=== PATIENT | female | born 1935 | race Caucasian/White ===

== ENCOUNTER → 2018-12-12 11:03 | Outpatient (POV) | payer MEDICARE, BC, SELFPAY | PROVIDERS: Visit Provider Dermatology | DX: Z00.00 Encounter for general adult medical examination without abnormal findings (principal) ==

== ENCOUNTER → 2021-03-13 15:37 | Outpatient (CLI) | payer MEDICARE, BC, SELFPAY ==
--- NOTE | 2021-03-13 | CA_ITS ---
APPROVED REPORT Right Lower Extremity Venous Study for DVT. Ager Operator: LOKI Cervantes Lower Extremity Pain: Right Varicose Veins Lower Extremity Swelling: Right Patient reports pain and a knot in her right calf that has been there since 03/09. Vein Imaging CFV (R): compressive, spontaneous, phasic, augmentation SFJ (R): compressive, spontaneous, phasic, augmentation FEM (R): compressive, spontaneous, phasic, augmentation POP (R): compressive, spontaneous, phasic, augmentation PTV (R): compressive, spontaneous, phasic, augmentation GSV (R): compressive, spontaneous, phasic, augmentation Peroneals (R):compressive, spontaneous, phasic, augmentation GAS (R): compressive, spontaneous, phasic, augmentation Findings Study demonstrates no evidece of DVT in the right lower extremity. Study demonstrates thrombophlebitis in the right proximal-mid medial calf. Conclusion Study demonstrates no evidece of DVT in the right lower extremity. Study demonstrates thrombophlebitis in the right proximal-mid medial calf. Critical Notification Physician Notified Date: 03/13/2021 Time: 16:24 Physician Name: Dr. Joy Electronically signed by : Pablo Segal MD 03/16/2021 16:21:51
== END ==
PROVIDERS: PCP Internal Medicine Adolescent Medicine; Visit Provider Internal Medicine Adolescent Medicine
DX: M79.604 Pain in right leg (principal)
CPT/HCPCS: 93971

== ENCOUNTER → 2021-10-06 09:04 | Outpatient (POV) | payer MEDICARE, BC, SELFPAY | PROVIDERS: Visit Provider Dermatology | DX: Z00.00 Encounter for general adult medical examination without abnormal findings (principal) ==

== ENCOUNTER → 2021-10-08 08:27 | Outpatient (CLI) | payer MEDICARE, BC, SELFPAY ==
--- NOTE | 2021-10-08 08:31 | US_ITS ---
FINAL REPORT CLINICAL HISTORY: MALAISE,HIGH BILIRUBIN-- sob FINDINGS: ABDOMINAL ULTRASOUND COMPLETE: TECHNIQUE: Ultrasound images of the abdomen were obtained. The pancreas is partially obscured. The liver is unremarkable. Multiple gallstones are seen with significant wall thickening measuring up to 8 mm, acute cholecystitis is not excluded. The common duct is borderline measuring 8 mm. The right kidney measures measures 9.1 cm. There is a small right renal cyst measuring 1.3 cm. The left kidney measures 10.2 cm. No flow is noted to both kidneys of uncertain significance. There is a small to moderate amount of ascites. Right pleural effusion is seen. The spleen is unremarkable. The aorta is normal in caliber. The vena cava is unremarkable. IMPRESSION: Gallstones with significant wall thickening, acute cholecystitis is not excluded. No flow seen to both kidneys of uncertain significance. If indicated, CTA may be helpful. Small to moderate ascites. Moderate right effusion. Reviewed, Interpreted and Dictated by Rony Bellamy III, MD Transcribed by Jessica Schreiber Authenticated by Rony Bellamy III, MD on 10/08/2021 10:26:21 AM [facility]
--- NOTE | 2021-10-08 09:29 | XR_ITS ---
FINAL REPORT CLINICAL HISTORY: SOB, PLURAL EFFUSION RIGHT COMPARISON: May 06, 2017 FINDINGS: Two views of the chest were obtained. Cardiomegaly is noted. There is a large hiatal hernia. There is mild bibasilar atelectasis or pneumonia. There is a small right pleural effusion. There is no pneumothorax. The bony thorax is intact. IMPRESSION: Mild bibasilar atelectasis or pneumonia, worse. Small right pleural effusion. Reviewed, Interpreted and Dictated by Rony Bellamy III, MD Transcribed by Jesus Boyd Authenticated by Rony Bellamy III, MD on 10/08/2021 10:01:00 AM [facility]
[2021-10-08 12:09] LABS: Basophils # 0.1 K/mm3 (0-0.2); Basophils % 1.2 % (0.1-2.0); Eosinophils % 0.6 % (0.1-12.0); Hematocrit 53.1 % (37.0-47.0); Hemoglobin 16.9 g/dL (12.2-16.2); Lymphocytes # 1.5 K/mm3 (0.7-4.5); Lymphocytes % 21.9 % (10-50); Mean Corpuscular HGB Conc 31.7 g/dL (31.8-35.4); Mean Corpuscular Volume 91.4 fl (81-99); Mean Platelet Volume 10.9 fl (7.4-10.4); Monocytes # 0.4 K/mm3 (0.1-1.0); Neutrophils # 4.8 K/mm3 (1.8-7.8); Neutrophils % 70.3 % (37.0-80.0); Platelet Count 235 K/mm3 (142-424); Red Blood Count 5.81 M/mm3 (4.20-5.40); Red Cell Distribution Width 14.3 % (11.5-17.5); White Blood Count 6.8 K/mm3 (4.8-10.8)
[2021-10-08 14:27] LABS: Alanine Aminotransferase 40 U/L (12-78); Albumin Level 4.5 g/dl (3.5-5.0); Albumin/Globulin Ratio 1.9 (1.1-1.8); Alkaline Phosphatase 32 U/L (38-126); Anion Gap 14.7 mEq/L (5-15); Aspartate Amino Transferase 45 U/L (14-36); Bilirubin,Total 8.5 mg/dl (0.2-1.3); Blood Urea Nitrogen 20 mg/dl (7-17); Calcium 9.9 mg/dl (8.4-10.2); Carbon Dioxide 24 mmol/L (22.0-30.0); Chloride 109 mmol/L (98-107); Estimated Glomerular Filt Rate 39 ml/min (>60); GFR (African American) 47 ML/MIN (>60); Globulin 2.4 g/dL (1.3-3.2); Glucose 132 mg/dl (74-100); Potassium 4.7 mmoL/L (3.5-5.1); Sodium 143 mmol/L (136-145); Total Protein,Serum 6.9 g/dl (6.3-8.2)
== END ==
LOC: RAD 08:27 → LAB 11:19
PROVIDERS: PCP Internal Medicine Adolescent Medicine; Visit Provider Internal Medicine Adolescent Medicine
DX: R53.81 Other malaise (principal); R17 Unspecified jaundice; R06.02 Shortness of breath; K81.0 Acute cholecystitis; J90 Pleural effusion, not elsewhere classified
CPT/HCPCS: 36415; 71046; 76700; 80053; 85025

== ENCOUNTER → 2021-10-14 09:08 | Outpatient (CLI) | payer MEDICARE, BC, SELFPAY ==
[2021-10-14 09:28] LABS: Basophils # 0.1 K/mm3 (0-0.2); Basophils % 1.6 % (0.1-2.0); Eosinophils # 0.1 K/mm3 (0.0-0.4); Eosinophils % 1.1 % (0.1-12.0); Hematocrit 55.6 % (37.0-47.0); Hemoglobin 17.9 g/dL (12.2-16.2); Lymphocytes # 1.7 K/mm3 (0.7-4.5); Lymphocytes % 23.8 % (10-50); Mean Corpuscular HGB Conc 32.2 g/dL (31.8-35.4); Mean Corpuscular Hemoglobin 29.2 pg (27.0-31.2); Mean Corpuscular Volume 90.9 fl (81-99); Mean Platelet Volume 10.7 fl (7.4-10.4); Monocytes # 0.4 K/mm3 (0.1-1.0); Monocytes % 5.9 % (1.7-9.3); Neutrophils # 4.9 K/mm3 (1.8-7.8); Neutrophils % 67.6 % (37.0-80.0); Platelet Count 224 K/mm3 (142-424); Red Blood Count 6.11 M/mm3 (4.20-5.40); Red Cell Distribution Width 14.1 % (11.5-17.5); White Blood Count 7.3 K/mm3 (4.8-10.8)
[2021-10-14 09:33] LABS: INR 1.21 (0.9-1.1); Prothrombin Time 13.5 seconds (10.1-12.5)
[2021-10-14 09:36] LABS: Alanine Aminotransferase 39 U/L (12-78); Albumin Level 4.9 g/dl (3.5-5.0); Albumin/Globulin Ratio 1.8 (1.1-1.8); Alkaline Phosphatase 32 U/L (38-126); Anion Gap 13.7 mEq/L (5-15); Aspartate Amino Transferase 51 U/L (14-36); Blood Urea Nitrogen 18 mg/dl (7-17); Calcium 9.6 mg/dl (8.4-10.2); Carbon Dioxide 26 mmol/L (22.0-30.0); Chloride 106 mmol/L (98-107); Estimated Glomerular Filt Rate 39 ml/min (>60); GFR (African American) 47 ML/MIN (>60); Globulin 2.8 g/dL (1.3-3.2); Glucose 165 mg/dl (74-100); Potassium 3.7 mmoL/L (3.5-5.1); Sodium 142 mmol/L (136-145); Total Protein,Serum 7.7 g/dl (6.3-8.2)
== END ==
PROVIDERS: Visit Provider Surgery
DX: K82.9 Disease of gallbladder, unspecified (principal); Z01.812 Encounter for preprocedural laboratory examination; R18.8 Other ascites
CPT/HCPCS: 36415; 80053; 85025; 85610

== ENCOUNTER → 2021-10-21 08:04 | Outpatient (CLI) | payer MEDICARE, BC, SELFPAY ==
--- NOTE | 2021-10-21 08:56 | MR_ITS ---
FINAL REPORT CLINICAL HISTORY: ELEVATED BILIRUBIN, ? DILATED BILE DUCT hx of advanced hepatic fibrosis COMPARISON: Ultrasound of the abdomen dated 10/08/2021 FINDINGS: Multiplanar MR imaging of the abdomen was performed without and with contrast. An MRCP was also performed. Three-D reformatted images were obtained. There is motion on many of the images which significantly decreases the sensitivity of the exam. Many sequences are nondiagnostic secondary to motion. There are small pleural effusions and mild bibasilar atelectasis. Images of the liver reveal no evidence of mass. There is moderate ascites. There is no evidence of biliary ductal dilatation. There are large gallstones in the gallbladder with gallbladder wall thickening. The common bile duct measures 6 mm which is within normal limits for the patient's age. There is a large hiatal hernia. There is a small right renal cyst. No abnormal fluid collection is seen. No abnormal contrast enhancement is seen on the postcontrast images. IMPRESSION: 1. Significantly technically limited exam. 2. Gallstone within the gallbladder with mild gallbladder wall thickening. Cholecystitis is not excluded. 3. Biliary system is suboptimally visualized but no definite stone or stricture. 4. Moderate ascites. 5. Large hiatal hernia. Reviewed, Interpreted and Dictated by Rony Bellamy III, MD Transcribed by Amada Camejo Authenticated by Rony Bellamy III, MD on 10/21/2021 01:15:50 PM [facility]
[2021-10-21 09:40] LABS: Ammonia < 9 umol/L (9-30)
[2021-10-22 08:17] LABS: AFP, Tumor Marker 2.7 ng/mL (0.0-8.7); CA 19-9 27 U/mL (0-35)
[2021-10-22 12:13] LABS: Ceruloplasmin 14.1 mg/dL (19.0-39.0); Hepatitis B Surface Antigen Negative (Negative); Hepatitis C Antibody <0.1 s/co ratio (0.0-0.9)
[2021-10-22 16:53] LABS: Actin (Smooth Muscle) Antibody 14 Units (0-19); Mitochondrial (M2) Antibody <20.0 Units (0.0-20.0)
[2021-10-24 00:07] LABS: ALT (SGPT) P5P 32 IU/L (0-40); AST (SGOT) P5P 38 IU/L (0-40); Alpha 2-Macroglobulins, Qn 189 mg/dL (110-276); Apolipoprotein A-1 139 mg/dL (114-214); Bilirubin, Total 6.8 mg/dL (0.0-1.2); Cholesterol, Total 123 mg/dL (100-199); Fibrosis Score 0.95 (0.00-0.21); GGT 75 IU/L (0-60); Glucose 128 mg/dL (65-99); Haptoglobin 21 mg/dL (41-333); NASH Score 0.75 (0.25); Steatosis Score 0.73 (0.00-0.30); Triglycerides 108 mg/dL (0-149)
[2021-10-26 17:19] LABS: Alpha-1-Antitrypsin 123 mg/dL (101-187)
== END ==
PROVIDERS: PCP Internal Medicine Adolescent Medicine; Visit Provider Internal Medicine Gastroenterology
DX: K83.8 Other specified diseases of biliary tract; K74.02 Hepatic fibrosis, advanced fibrosis
CPT/HCPCS: 36415; 74183; 82103; 82104; 82105; 82140; 82390; 82525; 86255; 86256; 86316; 87340; 87380; A9576

== ENCOUNTER → 2021-10-31 19:00 | Outpatient (CLI) | payer MEDICARE, BC, SELFPAY ==
[2021-11-04 23:18] LABS: Copper, Urine 40 ug/L (Not Estab.); Copper,Urine 24 Hr 28 ug/24 hr (3-35); Copper/Crt Ratio 33 ug/g creat (0-49); Creatinine(Crt),U 1.23 g/L (0.30-3.00)
== END ==
PROVIDERS: Visit Provider Internal Medicine Gastroenterology
DX: K74.02 Hepatic fibrosis, advanced fibrosis (principal); E83.01 Wilson's disease
CPT/HCPCS: 82525; 82570

== ENCOUNTER 2021-11-19 16:24 | Inpatient (IN) | payer MEDICARE, BC, SELFPAY ==
[2021-11-19 16:32] VITALS: O2SAT 88
--- NOTE | 2021-11-19 16:32 | XR_ITS ---
PROCEDURE INFORMATION: Exam: XR Chest Exam date and time: 11/19/2021 4:44 PM Age: 86 years old Clinical indication: Cough; Patient HX: Low o2 TECHNIQUE: Imaging protocol: XR of the chest. Views: 1 view. COMPARISON: CR XR CHEST 2V 10/08/2021 9:31 AM FINDINGS: Lungs: Streaky consolidation at both lung bases. This finding is more pronounced in the interval. The remaining pulmonary parenchyma is clear. No other pulmonary infiltrate or consolidation. Probable pulmonary hyperexpansion again noted. Pleural spaces: Unremarkable. No pleural effusion. No pneumothorax. Heart/Mediastinum: Mild enlargement of the heart again noted. Bones/joints: Unremarkable. IMPRESSION: 1. Airspace consolidation at both lung bases may represent atelectasis or pneumonia. 2. Chronic obstructive pulmonary disease.
--- NOTE | 2021-11-19 16:36 | CA_ITS ---
APPROVED REPORT EXAM: Comprehensive 2D, Doppler, and color-flow Echocardiogram Quilting Supervisor: POLINA Frederick, RVS Ht: 5 ft 5 in Wt: 189lbs BSA: 1.93 BP: 154/96 mmHg Indications: SOA,Pleural effusion, Liver disease with jaundice, dehydration, Murmur Echo Enhancing Agent Comments: patient scanned upright supine due to low oximetry 2D Dimensions IVSd 1.59 cm F: 0.6-1.0 LA Volume 42.80 mL PWd 0.80 cm F: 0.6 - 1.0 LA Volume Index 22.17 mL/m2 (M/F) 16-34 LVDd 3.64 cm F: 3.9 - 5.3 Aortic Root 3.15 cm F: 2.7 - 3.3 Left Atrium 2.98 cm F: 2.7 - 3.8 LVOT 1.70 cm (M/F) 1.5-2.5 M-Mode Dimensions RVDd 3.30 cm (0.9-2.6) LA Diam 4.13 cm (1.9-4.0) LVDd 3.81 cm (3.5-5.7) Ao Diam 3.49 cm (2.0-3.7) LVDs 2.36 cm (3.5-5.7) IVSd 1.32 cm (0.6-1.1) PWd 0.90 cm (0.6-1.1) EF (Teich) 69.00% FS 38.10% EDV (Teich) 62.30 mL TAPSE 1.29 (<1.7) ESV (Teich) 19.30 mL LV Diastology E Decel Time 290.00 (160-240 msec) E/A Ratio 0.47 Aortic Valve LVOT Max 70.00 (70-110 cm/s) LVOT VTI 13.09 cm AoV Peak Juan. 117.00 (50-130 cm/s) AO Peak GR. 5.50 mmHg AO Mean GR. 2.60 (<5 mmHg) AO VTI 16.38 (18-25 cm) ESTHER (VTI) 1.81 (2.5-4.5 cm2) Mitral Valve MV A Velocity 86.00 (40-130 cm/s) E/A Ratio 0.47 MV Decel. Time 290.00 (160-240 ms) MV Mean Gr. 0.80 (<2mmHg) MV PHT 100.00 ms Pulmonary Valve PV Peak Velocity 42.00 (50-150 cm/s) OR End VMAX 202.00 cm/s Tricuspid Valve TR P. Velocity 416.00 cm/s RAP Estimate 10.00 mmHg RVSP 79.40 mmHg Left Ventricle Technically difficult study because of the patient factors and poor acoustic windows. Left atrium is mildly enlarged, left ventricle is normal size, mild concentric ventricular hypertrophy, estimated ejection fraction 55% with no regional wall motion abnormality, there is flattening of the interventricular septum during systole and diastole consistent with pressure and volume overload on right ventricle. Doppler evidence of impaired LV relaxation seen. Right Ventricle Right atrium and right ventricle moderately enlarged, contractility right ventricle is normal. Aortic Valve Aortic valve is minimally thickened and fibrosed, there is no aortic stenosis or aortic insufficiency. Mitral Valve Mitral leaflets are minimally thickened, there is no mitral stenosis, there is mild mitral regurgitation. Tricuspid Valve Tricuspid valve is grossly normal, there is mild tricuspid regurgitation, calculated right ventricular systolic pressure 79 mmHg. Pulmonic Valve Pulmonic valve is poorly visualized. Great Vessels Aortic root is normal size. Inferior vena cava is poorly visualized. Pericardium Trivial pericardial effusion noted. Left-sided pleural effusion seen. Conclusion 1. Normal left ventricular size, mild concentric left ventricular hypertrophy, estimated ejection fraction 55%, with no regional wall motion abnormality, there is flattening of the intraventricular septum during systole and diastole consistent with pressure and volume overload on right ventricle. 2. Moderately enlarged right atrium and right ventricle, contractility right ventricle is normal. 3. Mild mitral and tricuspid regurgitation, calculated right ventricular systolic pressure 79 mmHg. 4. Trivial pericardial effusion noted, there is left-sided pleural effusion seen. Electronically signed by : Rk Sapp MD 11/20/2021 13:00:02
[2021-11-19 16:56] VITALS: BP 151/90; PULSE 82; RESP 18; TEMP 36.4; O2SAT 86; BMI 30.5
[2021-11-19 17:19] LABS: Basophils # 0.2 K/mm3 (0-0.2); Basophils % 1.5 % (0.1-2.0); Eosinophils # 0.1 K/mm3 (0.0-0.4); Eosinophils % 0.7 % (0.1-12.0); Hematocrit 55.5 % (37.0-47.0); Lymphocytes # 1.5 K/mm3 (0.7-4.5); Lymphocytes % 15.3 % (10-50); Mean Corpuscular HGB Conc 32.8 g/dL (31.8-35.4); Mean Corpuscular Hemoglobin 28.8 pg (27.0-31.2); Mean Corpuscular Volume 87.8 fl (81-99); Mean Platelet Volume 12.4 fl (7.4-10.4); Monocytes # 0.7 K/mm3 (0.1-1.0); Monocytes % 6.4 % (1.7-9.3); Neutrophils # 7.7 K/mm3 (1.8-7.8); Neutrophils % 76.1 % (37.0-80.0); Platelet Count 205 K/mm3 (142-424); Red Blood Count 6.32 M/mm3 (4.20-5.40); Red Cell Distribution Width 14.8 % (11.5-17.5); White Blood Count 10.1 K/mm3 (4.8-10.8)
[2021-11-19 17:26] LABS: Alanine Aminotransferase 67 U/L (12-78); Albumin Level 4.6 g/dl (3.5-5.0); Albumin/Globulin Ratio 1.7 (1.1-1.8); Alkaline Phosphatase 46 U/L (38-126); Amylase 77 U/L (30-110); Anion Gap 14.9 mEq/L (5-15); Aspartate Amino Transferase 63 U/L (14-36); Bilirubin,Total 10.1 mg/dl (0.2-1.3); Blood Urea Nitrogen 39 mg/dl (7-17); Calcium 10.5 mg/dl (8.4-10.2); Carbon Dioxide 21 mmol/L (22.0-30.0); Chloride 106 mmol/L (98-107); Creatinine Clearance Estimated 28 mL/min (50-200); Estimated Glomerular Filt Rate 24 ml/min (>60); GFR (African American) 29 ML/MIN (>60); Globulin 2.7 g/dL (1.3-3.2); Glucose 128 mg/dl (74-100); Magnesium 1.7 mg/dl (1.6-2.3); Potassium 3.9 mmoL/L (3.5-5.1); Sodium 138 mmol/L (136-145); Total Protein,Serum 7.3 g/dl (6.3-8.2)
[2021-11-19 17:33] LABS: C-Reactive Protein < 0.3 mg/L (0-4)
[2021-11-19 17:46] LABS: INR 1.44 (0.9-1.1); Prothrombin Time 15.8 seconds (10.1-12.5)
--- NOTE | 2021-11-19 17:46 | ECG_ITS ---
APPROVED REPORT Exam: Resting ECG HR:77 bpm ECG Measurements Heart Rate 77 AXES RI 173 P 62 QRSd 92 QRS 131 QT 404 T -44 QTc 436 Conclusion SINUS RHYTHM WITH OCCASIONAL SUPRAVENTRICULAR PREMATURE COMPLEXES INCOMPLETE RIGHT BUNDLE BRANCH BLOCK [90+ ms QRS DURATION, TERMINAL R IN V1/V2, 40+ ms S IN I/aVL/V4/V5/V6] POSSIBLE RIGHT VENTRICULAR HYPERTROPHY [SOME/ALL OF: PROMINENT R IN V1, LATE TRANSITION, RAD, BOYD, SSS] POSSIBLE ANTERIOR MYOCARDIAL INFARCTION , OF INDETERMINATE AGE [30 ms Q WAVE IN V3/V4, OR R < 0.2 mV IN V4] ABNORMAL ECG UNCONFIRMED REPORT Electronically signed by : Jamison Romero MD 11/20/2021 09:56:39
[2021-11-19 17:47] LABS: Erythrocyte Sedimentation Rate 1 mm/hr (0-30)
[2021-11-19 18:03] LABS: Lipase 631 U/L (23-300)
[2021-11-19 18:04] LABS: Hemoglobin 18.2 g/dL (12.2-16.2)
--- NOTE | 2021-11-19 18:05 | CT_ITS ---
PROCEDURE INFORMATION: Exam: CT Abdomen And Pelvis Without Contrast Exam date and time: 11/19/2021 7:16 PM Age: 86 years old Clinical indication: Other: Ascities, dyspea, liver disease; Additional info: Acsites, dyspnea, liver disease TECHNIQUE: Imaging protocol: Computed tomography of the abdomen and pelvis without contrast. Radiation optimization: All CT scans at this facility use at least one of these dose optimization techniques: automated exposure control; mA and/or kV adjustment per patient size (includes targeted exams where dose is matched to clinical indication); or iterative reconstruction. COMPARISON: MR ABDOMEN WO/W CON 10/21/2021 9:47 AM FINDINGS: Lungs: New dense atelectasis or consolidation in the left lower lobe compared with the prior MRI, with air bronchograms. Chronic patchy in the right middle and lower lobes. Pleural spaces: There is a small to moderate layering right pleural effusion, and trace left pleural effusion , fluid density is approximately 11-20 HU. Heart: Cardiomegaly. Pericardial effusion which appears enlarged compared with the prior MRI exam, up to 1.7 cm thickness coronal series 601, image 29. Fluid has HU density measurements of approximately 18-20.Coronary artery calcification is present. Liver: The liver is within normal limits size. No discrete mass seen on this nonenhanced exam. Gallbladder and bile ducts: Cholelithiasis, large gallstones better seen on the prior MRCP. Pericholecystic fluid is probably related to the generalized ascites, less likely cholecystitis. Biliary tree appears within normal limits. Pancreas: The pancreas is normal. Spleen: No splenomegaly. Multiple calcified granulomas. Adrenal glands: The adrenal glands are normal. Kidneys and ureters: Right kidney is unremarkable. Hyperdense, likely hemorrhagic cyst at the left lower pole kidney of 91 HU, measuring 1.6 cm coronal image 45. There is an indeterminate density mass in the inferomedial left kidney of 2.5 cm, HU density 32 coronal series 601, image 40, this does not have the appearance of a simple cyst on the previous MRI exam, compare coronal series 4, image 18 of the previous MRI from 10/21/2021, this could be a solid mass, and appears to show contrast enhancement on the previous MRI exam, compare coronal series 33, image 70 of the previous MRI, worrisome for a solid enhancing mass versus leakage of contrast into a cyst. Another 9 mm indeterminate density nodule at the left upper pole series 3, image 35, too small to accurately characterize. No hydronephrosis, hydroureter, or calcified obstructing stones. Stomach and bowel: There is no evidence of intestinal perforation or obstruction. A large hiatal hernia containing majority of the stomach; the stomach is moderately rotated consistent with the partial volvulus, but there is no evidence of gastric outlet obstruction, or definite change compared with the prior MRI. No acute findings in the stomach, as visualized. Appendix: No findings of appendicitis. Intraperitoneal space: Large amount of abdominal-pelvic free fluid/ascites. No hyperdense fluid to suggest hemoperitoneum or to confirm infection. No loculated collection seen on this nonenhanced exam.There is no free intraperitoneal air. Arteries: There is no aortic aneurysm.The vasculature demonstrates scattered mild atherosclerotic calcification. Veins: No portal venous gas. Lymph nodes: No significantly enlarged lymph nodes by short axis criteria. Urinary bladder: The bladder is normal. Reproductive: No acute findings as visualized. Bones/joints: There are spinal degenerative changes, with multilevel disc narrrowing and spo
--- NOTE | 2021-11-19 18:08 | PC.NURSE ---
18:04 - Critical Lab value of Lipase at 631received from Nehemias De La O in lab, pt. name and date of verified. 18:07 - Dr. Roemro notified of Lipase at 631. v/u no new orders received.
[2021-11-19 18:11] LABS: ABG Base Excess -7.1 mmol/L (-2.4-2.3); ABG HCO3 17.8 mmhg (22.0-26.0); ABG Oxygen Saturation 88 % (90-100); ABG PCO2 29.9 mmhg (35.0-45.0); ABG PH 7.39 mmol/L (7.35-7.45); ABG PO2 52.5 mmhg (80-100); ABG TCO2 18.7 mmhg (23-27)
[2021-11-19 18:13] LABS: Allen's Test Acceptable
[2021-11-19 18:14] LABS: Oxygen 5L %; Source Right Radial
--- NOTE | 2021-11-19 19:09 | PC.NURSE ---
RESP CARE NOTE: Pt placed on 50% venturi mask at 15 lpm to keep SPO2 above 90%. Will continue to monitor.
[2021-11-19 19:11] VITALS: O2SAT 92
--- NOTE | 2021-11-19 19:14 | PC.NURSE ---
PT IS OFF FLOOR AT THID TIME
--- NOTE | 2021-11-19 19:26 | PC.NURSE ---
PT BACK TO FLOOR A THIS TIME
--- NOTE | 2021-11-19 19:35 | PC.NURSE ---
RESP CARE NOTE: Pt SPO2 at 90% on 50% Venti-mask. Will continue to monitor.
[2021-11-19 20:00] VITALS: BP 141/91; PULSE 60; RESP 18; TEMP 36.5; O2SAT 90
[2021-11-19 21:04] LABS: POC Glucose,Bedside 103 (70-110)
[2021-11-19 22:20] LABS: Chloride, Arterial 106 mmol/L (98-107); Potassium, Arterial 4.1 mmoL/L (3.5-5.1); Sodium Arterial 139 mmol/L (137-145)
[2021-11-19 22:21] LABS: Calcium, Arterial 5.2 mg/dL (8.5-10.1)
[2021-11-19 22:23] LABS: Lactate Arterial 2.4 mmol/L (0.4-2.0)
--- NOTE | 2021-11-19 23:16 | HMH.HP ---
*Admission Date: 11/19/21 *Chief complaint: weakness, shortness of breath *History of present illness: 86 yr old female seen today in outpatient clinic, accompanied by her son who assists with history, with complaints of worsening shortness of breath, diarrhea, weakness and edema. She has been undergoing workup recently for liver disease and abnormal blood counts. Has been evaluated by general surgery here at [facility] due to gallstones, referred to Dr Pearl and he has subsequently referred her to another liver specialist in [place], [place] but that appointment isn't until March. Additionally has an appointment pending with hematology at in December. Developed diarrhea 2 weeks ago. Has been slightly better in the past 3-4 days but still has loose stool every time she attempts to eat or drink. Her shortness of breath has gotten substantially worse over the past 2 weeks and yesterday she became unable to care for herself physically. She denies vomiting, cough, fever, dysuria, known exposure to illness. Her only new medication is spironolactone which was added by Dr Pearl about 3 weeks ago. On exam she was jaundiced, with conversational dyspnea and low pulse ox and was admitted for hydration and additional workup as indicated. [facility] History I have reviewed the patient's past medical history: Yes Medical History: Reports:: Diabetes Mellitus Type 2, Gall Bladder Disease, Hiatal Hernia, Hyperlipidemia, Hypertension, Kidney Stones, Renal Disease, Urinary Tract Infection Denies:: Cancer, Diabetes Mellitus Type 1, Internal Pacemaker, Lung Disease, MRSA, Seizures *Have you ever received a pneumonia vaccine?: Yes *Have you received a flu vaccine this season?: No Other Medical History: Reports: Arthritis, Liver Disease, Sinus Problems Laterality Cases: Bilateral: Tonsillectomy Other Surgeries: Yes: Colonoscopy, Sinus Surgery, Skin Cancer Excision, Other (parathyroid surgery, fatty tumor removed from hip). No: Pacemaker Amputation: No Fractures: No - *Social History Last grade of school completed: Some college Smoking Status: Former smoker Alcohol Intake: never Substance Use Type: denies use *Occupational Status:: retired Housing: house Household Members: none *Travel in the last 8 weeks: None Family Hx:: Cancer Review of Systems - Review of Systems Review of systems:: pertinent systems reviewed and negative unless documented below - Constitutional Reports anorexia, Reports fatigue, Reports weakness, Denies fever(s) - ENT Reports dry mouth - *Cardiovascular Reports shortness of breath, Reports leg swelling - *Respiratory Reports shortness of breath, Denies cough - *Gastrointestinal Reports loose stools, Reports nausea, Denies abdominal pain - *Musculoskeletal Reports muscle weakness - Integumentary/Breasts Reports yellowing of the skin - *Neurologic Reports unsteadiness Meds Home Medications Medication Instructions Recorded Confirmed Type amlodipine 5 mg tablet 5 mg PO DAILY 11/15/17 11/19/21 History atorvastatin 10 mg tablet 10 mg PO DAILY 11/15/17 11/19/21 History benazepril 40 mg tablet 40 mg PO DAILY 11/15/17 11/19/21 History furosemide 20 mg tablet 20 mg PO DAILY tab 10/14/21 11/19/21 History Acetaminophen/Diphenhydramine 1 each PO HSP PRN 11/19/21 11/19/21 History [Tylenol Pm Ex-Strength Caplet] Melatonin 1 mg PO HSP PRN 11/19/21 11/19/21 History Metformin HCl [Metformin 1000mg 1,000 mg PO DAILY 11/19/21 11/19/21 History Tablets] Nebivolol HCl 10 mg PO DAILY 11/19/21 11/19/21 History Spironolactone 50 mg PO DAILY 11/19/21 11/19/21 History Allergies Allergy/AdvReac Type Severity Reaction Status Date / Time erythromycin base Allergy Intermediate I-RASH Verified 10/14/21 10:00 Sulfa (Sulfonamide Allergy Intermediate I-RASH Verified 10/14/21 10:00 Antibiotics) aspirin Allergy Mild Verified 10/14/21 10:00 hydrocodone Allergy Mild HEADACHE Verified 10/14/21 10:00 ibuprofen Allergy Mild Verified
[2021-11-19 23:50] VITALS: O2SAT 88
[2021-11-20] VITALS (9 sets, daily range): BP systolic 101–145; BP diastolic 49–94; PULSE 56–83; RESP 17–20; TEMP 36.3–36.8; O2SAT 84–96; BMI 30.1
--- NOTE | 2021-11-20 00:32 | PC.NURSE ---
RESP CARE NOTE: Pt SPO2 at 85% on 50% venturi-mask. RN aware and has attempted contacting physician.
--- NOTE | 2021-11-20 00:55 | PC.NURSE ---
RESP CARE NOTE: Pt placed on 15lpm high flow nasal cannula, per Dr Joy order, after one Duoneb breathing treatment given, per Dr Joy order.
[2021-11-20 06:32] LABS: POC Glucose,Bedside 89 (70-110)
[2021-11-20 07:05] LABS: Basophils # 0.2 K/mm3 (0-0.2); Basophils % 1.9 % (0.1-2.0); Chloride 109 mmol/L (98-107); Eosinophils # 0.1 K/mm3 (0.0-0.4); Eosinophils % 0.8 % (0.1-12.0); Hematocrit 52.2 % (37.0-47.0); Hemoglobin 17.1 g/dL (12.2-16.2); Lymphocytes # 1.8 K/mm3 (0.7-4.5); Lymphocytes % 21.6 % (10-50); Mean Corpuscular HGB Conc 32.8 g/dL (31.8-35.4); Mean Corpuscular Hemoglobin 28.9 pg (27.0-31.2); Mean Corpuscular Volume 88.1 fl (81-99); Mean Platelet Volume 12.5 fl (7.4-10.4); Monocytes # 0.6 K/mm3 (0.1-1.0); Monocytes % 7.3 % (1.7-9.3); Neutrophils # 5.8 K/mm3 (1.8-7.8); Neutrophils % 68.4 % (37.0-80.0); Platelet Count 192 K/mm3 (142-424); Red Blood Count 5.93 M/mm3 (4.20-5.40); Sodium 139 mmol/L (136-145); White Blood Count 8.4 K/mm3 (4.8-10.8)
[2021-11-20 07:06] LABS: Potassium 4.1 mmoL/L (3.5-5.1)
[2021-11-20 07:08] LABS: Alanine Aminotransferase 53 U/L (12-78); Albumin Level 3.7 g/dl (3.5-5.0); Albumin/Globulin Ratio 1.5 (1.1-1.8); Alkaline Phosphatase 35 U/L (38-126); Anion Gap 14.1 mEq/L (5-15); Aspartate Amino Transferase 58 U/L (14-36); Bilirubin,Total 9.1 mg/dl (0.2-1.3); Blood Urea Nitrogen 40 mg/dl (7-17); Carbon Dioxide 20 mmol/L (22.0-30.0); Creatinine Clearance Estimated 25 mL/min (50-200); Estimated Glomerular Filt Rate 21 ml/min (>60); GFR (African American) 26 ML/MIN (>60); Globulin 2.5 g/dL (1.3-3.2); Total Protein,Serum 6.2 g/dl (6.3-8.2)
[2021-11-20 07:09] LABS: Glucose 99 mg/dl (74-100); Magnesium 1.7 mg/dl (1.6-2.3)
--- NOTE | 2021-11-20 07:30 | HMH.ACPN2 ---
Internal Medicine - PN: Subj *Date: 11/20/21 *Time: 14:43 Interval history: Increased oxygen requirement overnight. Transition to high flow nasal cannula. Feeling much better this morning with saturations in the low 90s. Slight improvement in bilirubin on labs. Patient n.p.o. since imaging yesterday and would like to try eating however has not been able to eat very well due to nausea and throwing up which she has been eating for the past few weeks. On imaging as large hiatal hernia. This likely complicate some of her p.o. intake. Will order clear liquid diet for her to try and at least have options for drinking fluids. Exam Vital signs and Labs for Last 24 Hours: Temp Pulse Resp BP Pulse Ox 98.3 F 72 17 129/80 90 L 11/20/21 04:00 11/20/21 06:29 11/20/21 04:00 11/20/21 04:00 11/20/21 06:29 Laboratory Results - last 24 hr 11/19/21 16:58: WBC 10.1, RBC 6.32 H, Hgb 18.2 H, Hct 55.5 H, MCV 87.8, MCH 28.8, MCHC 32.8, RDW 14.8, Plt Count 205, MPV 12.4 H, Neut % (Auto) 76.1, Lymph % (Auto) 15.3, [place] % (Auto) 6.4, Eos % (Auto) 0.7, Baso % (Auto) 1.5, Neut # (Auto) 7.7, Lymph # (Auto) 1.5, [place] # (Auto) 0.7, Eos # (Auto) 0.1, Baso # (Auto) 0.2 11/19/21 16:58: Sodium 138, Potassium 3.9, Chloride 106, Carbon Dioxide 21 L, Anion Gap 14.9, BUN 39 H, Creatinine 2.00 H, Estimated Creat Clear 28, Estimated GFR 24 L, Est GFR ( Amer) 29 L, Glucose 128 H, Calcium 10.5 H, Magnesium 1.7, Total Bilirubin 10.1 H*, AST 63 H, ALT 67, Alkaline Phosphatase 46, C-Reactive Protein < 0.3, Total Protein 7.3, Albumin 4.6, Globulin 2.7, Albumin/Globulin Ratio 1.7, Amylase 77 11/19/21 16:58: ESR 1 11/19/21 16:58: PT 15.8 H, INR 1.44 H 11/19/21 16:58: Lipase 631 H 11/19/21 17:46: Specimen Source Right radial, O2 % 5l, ABG pH 7.39, ABG pCO2 29.9 L, ABG pO2 52.5 L, ABG HCO3 17.8 L, ABG Total CO2 18.7 L, ABG O2 Saturation 88 L, ABG Base Excess -7.1 L, Pablo Test Acceptable 11/19/21 17:46: ABG Sodium 139, ABG Potassium 4.1, ABG Chloride 106, ABG Lactate 2.4 H, Arterial Blood Potassium 4.1, Arterial Blood Chloride 106, Arterial Blood Ionized Calcium 5.2 L* 11/19/21 20:41: POC Glucose 103 11/20/21 06:24: POC Glucose 89 11/20/21 06:38: WBC 8.4, RBC 5.93 H, Hgb 17.1 H, Hct 52.2 H, MCV 88.1, MCH 28.9, MCHC 32.8, RDW 15.0, Plt Count 192, MPV 12.5 H, Neut % (Auto) 68.4, Lymph % (Auto) 21.6, [place] % (Auto) 7.3, Eos % (Auto) 0.8, Baso % (Auto) 1.9, Neut # (Auto) 5.8, Lymph # (Auto) 1.8, [place] # (Auto) 0.6, Eos # (Auto) 0.1, Baso # (Auto) 0.2 11/20/21 06:38: Sodium 139, Potassium 4.1, Chloride 109 H, Carbon Dioxide 20 L, Anion Gap 14.1, BUN 40 H, Creatinine 2.20 H, Estimated Creat Clear 25, Estimated GFR 21 L, Est GFR ( Amer) 26 L, Glucose 99 D, Calcium 9.0, Magnesium 1.7, Total Bilirubin 9.1 H, AST 58 H, ALT 53, Alkaline Phosphatase 35 L, Total Protein 6.2 L, Albumin 3.7 D, Globulin 2.5, Albumin/Globulin Ratio 1.5 I & O for Last 24 hours: Intake & Output 11/17/21 11/18/21 11/19/2115/22 23:59 23:59 23:59 23:59 Intake Total 1578 / 1578 Output Total 60 / 60 Balance 1518 / 1518 Weight 85.757 kg Microbiology Reports for the Last 24 Hours: Microbiology 11/19/21 17:03 Nasopharyngeal Coronavirus COVID-19 PCR - Final Narrative: - Constitutional moderate distress, obese, chronically ill appearing, cooperative - *Routine HEENT Exam Head: Present: other (chronic cystic lesions on scalp) Eye: Present: conjunctival icterus ENT: Present: mucous membranes dry, oropharynx clear - *Routine Neck Exam Present: supple. Absent: lymphadenopathy - *Routine Respiratory Exam Present: decreased breath sounds, rales (right lateral). Absent: accessory muscle use - *Routine Cardiovascular Exam Present: RRR - *Routine Abdominal Exam Present: soft, normoactive bowel sounds, tenderness, distended, obese. Absent: guarding - *Routine Extremities Exam Present: 2+ edema, pulses intact - *Routine Skin Exam Present: intact, warm,
--- NOTE | 2021-11-20 07:42 | P.CONPHA_ITS ---
[facility] Pharmacy VTE Monitoring - Patient Demographics Admission date: 11/19/21 Report Date: 11/20/21 Time: 07:42 Allergies/Adverse Reactions: Patient Allergies erythromycin base Allergy (Intermediate, Verified 10/14/21 10:00) I-RASH Sulfa (Sulfonamide Antibiotics) Allergy (Intermediate, Verified 10/14/21 10:00) I-RASH aspirin Allergy (Mild, Verified 10/14/21 10:00) hydrocodone Allergy (Mild, Verified 10/14/21 10:00) HEADACHE ibuprofen Allergy (Mild, Verified 10/14/21 10:00) Height: 1.68 m Weight: 85.757 kg Patient Problems: Current Active Problems Jaundice (Acute) Dehydration (Acute) Elevated hemoglobin (Acute) Acute hypoxemic respiratory failure (Acute) Pleural effusion (Acute) Ascites (Acute) Anasarca (Acute) Stage 3b chronic kidney disease (CKD) (Chronic) Senile debility (Chronic) BMI greater than 30 (Chronic) Type 2 diabetes mellitus (Chronic) Cholelithiasis (Chronic) Renal cysts, acquired, bilateral (Chronic) - VTE Risk Labs: VTE Related Lab Results Hgb 17.1 g/dL (12.2-16.2) H 11/20/21 06:38 Hct 52.2 % (37.0-47.0) H 11/20/21 06:38 Plt Count 192 K/mm3 (142-424) 11/20/21 06:38 PT 15.8 seconds (10.1-12.5) H 11/19/21 16:58 INR 1.44 (0.9-1.1) H 11/19/21 16:58 BUN 40 mg/dl (7-17) H 11/20/21 06:38 Creatinine 2.20 mg/dl (0.52-1.04) H 11/20/21 06:38 Estimated Creat Clear 25 mL/min (50-200) 11/20/21 06:38 Was VTE Risk Assessment Performed: Yes VTE Score: 3 VTE Risk Level: Low Risk Clinical Trial Participant: No - Prophylaxis VTE Prophylaxis Ordered?: Yes Types of VTE Prophylaxis: TEDS Knee High
--- NOTE | 2021-11-20 09:03 | HMH.PHAINT ---
MEDICATION RECONCILIATION COMPLETED ON PATIENT USING EXTERNAL FILL HISTORY FROM PHARMACY AND PATIENT INTERVIEW. -DERRICK STRAUSS, JOVID
[2021-11-20 11:16] LABS: POC Glucose,Bedside 140 (70-110)
--- NOTE | 2021-11-20 14:11 | XR_ITS ---
FINAL REPORT CLINICAL HISTORY: increase o2 requirement COMPARISON: November 19, 2021 FINDINGS: The heart is moderately enlarged. There is a large hiatal hernia. There is scarring in the lung bases. There are no pleural effusions. There is no pneumothorax. There is no osseous abnormality. IMPRESSION: Large hiatal hernia. Bibasilar scarring. Reviewed, Interpreted and Dictated by Wellington Mcdonnell MD Transcribed by Jesus Boyd Authenticated by Wellington Mcdonnell MD on 11/20/2021 04:00:14 PM [facility]
[2021-11-20 16:37] LABS: POC Glucose,Bedside 129 (70-110)
--- NOTE | 2021-11-20 17:35 | PC.NURSE ---
PT IS RESTING IN BED ON HER LEFT SIDE AT THIS TIME. ALERT AND ORIENTED X4. PT HAS BEEN UP TO THE BSC SEVERAL TIMES THIS SHIFT. PUR WICK IN PLACE. LUNG SOUNDS DIMINISHED WITH FINE CRACKLES (RLL). O2 SATURATION HAS MAINTAINED 89-94% ON 15L HIGH FLOW CANNULA. SWELLING NOTED TO BLE. PT HAS HAD A FEW LIQUID STOOLS THIS SHIFT. TOLERATING FULL LIQUID DIET W/O N/V. WILL CONTINUE TO MONITOR.
[2021-11-20 20:23] LABS: Chloride 109 mmol/L (98-107); Potassium 4.4 mmoL/L (3.5-5.1); Sodium 138 mmol/L (136-145)
[2021-11-20 20:26] LABS: Anion Gap 12.4 mEq/L (5-15); Blood Urea Nitrogen 39 mg/dl (7-17); Calcium 8.8 mg/dl (8.4-10.2); Carbon Dioxide 21 mmol/L (22.0-30.0); Creatinine Clearance Estimated 24 mL/min (50-200); Estimated Glomerular Filt Rate 20 ml/min (>60); GFR (African American) 24 ML/MIN (>60)
[2021-11-20 20:27] LABS: Glucose 151 mg/dl (74-100)
[2021-11-20 23:01] LABS: Microscopic, Urine URINE MICROSCOPIC (MICROSCOPIC)
[2021-11-20 23:03] LABS: Appearance,Urine SL CLOUDY (Clear); Blood, Urine Negative (Negative); Color,Urine DK YELLOW (Yellow); Glucose,Urine (UA) Negative (Negative); Ketones,Urine Negative (Negative); Leukocyte Esterase,Urine Negative (Negative); Nitrate,Urine Negative (Negative); PH,Urine 5.5 (5.0-8.5); Protein,Urine 2+ (Negative); Specific Gravity, Urine >= 1.030 (1.005-1.030); Urobilinogen,Urine 0.2 EU/dl (0.2)
[2021-11-20 23:09] LABS: Bilirubin,Urine 2+ (Negative)
[2021-11-20 23:10] LABS: Amorphous Sediment,Urine 1+ /lpf
[2021-11-21 01:17] LABS: POC Glucose,Bedside 117 (70-110)
[2021-11-21 04:00] VITALS: BP 97/53; PULSE 58; RESP 20; TEMP 36.4; O2SAT 93
[2021-11-21 05:00] VITALS: BMI 32.0
[2021-11-21 06:13] VITALS: PULSE 57; O2SAT 90
[2021-11-21 06:34] LABS: Basophils # 0.1 K/mm3 (0-0.2); Basophils % 0.8 % (0.1-2.0); Eosinophils # 0.1 K/mm3 (0.0-0.4); Eosinophils % 1.3 % (0.1-12.0); Hematocrit 53.5 % (37.0-47.0); Hemoglobin 16.9 g/dL (12.2-16.2); Lymphocytes # 1.6 K/mm3 (0.7-4.5); Lymphocytes % 18.5 % (10-50); Mean Corpuscular HGB Conc 31.5 g/dL (31.8-35.4); Mean Corpuscular Hemoglobin 28.9 pg (27.0-31.2); Mean Corpuscular Volume 91.7 fl (81-99); Mean Platelet Volume 12.9 fl (7.4-10.4); Monocytes # 0.7 K/mm3 (0.1-1.0); Monocytes % 7.4 % (1.7-9.3); Neutrophils # 6.3 K/mm3 (1.8-7.8); Neutrophils % 72.1 % (37.0-80.0); Platelet Count 184 K/mm3 (142-424); Red Blood Count 5.84 M/mm3 (4.20-5.40); Red Cell Distribution Width 15.2 % (11.5-17.5); White Blood Count 8.8 K/mm3 (4.8-10.8)
[2021-11-21 06:42] LABS: Chloride 111 mmol/L (98-107); Potassium 4.2 mmoL/L (3.5-5.1); Sodium 139 mmol/L (136-145)
[2021-11-21 06:45] LABS: Alanine Aminotransferase 50 U/L (12-78); Albumin Level 3.6 g/dl (3.5-5.0); Albumin/Globulin Ratio 1.6 (1.1-1.8); Alkaline Phosphatase 34 U/L (38-126); Anion Gap 13.2 mEq/L (5-15); Aspartate Amino Transferase 49 U/L (14-36); Bilirubin,Total 7.8 mg/dl (0.2-1.3); Blood Urea Nitrogen 40 mg/dl (7-17); Calcium 8.6 mg/dl (8.4-10.2); Carbon Dioxide 19 mmol/L (22.0-30.0); Creatinine Clearance Estimated 22 mL/min (50-200); Estimated Glomerular Filt Rate 17 ml/min (>60); GFR (African American) 20 ML/MIN (>60); Globulin 2.3 g/dL (1.3-3.2); Glucose 122 mg/dl (74-100); Total Protein,Serum 5.9 g/dl (6.3-8.2)
[2021-11-21 06:46] LABS: Magnesium 1.7 mg/dl (1.6-2.3)
[2021-11-21 07:33] LABS: POC Glucose,Bedside 124 (70-110)
[2021-11-21 08:00] VITALS: BP 94/60; PULSE 61; RESP 19; TEMP 36.4; O2SAT 91
--- NOTE | 2021-11-21 08:44 | HMH.ACPN2 ---
Internal Medicine - PN: Neisha *Date: 11/21/21 *Time: 08:44 Interval history: Overnight patient did well with a clear liquid diet, was able to keep some fluids down. I ordered a Hawthorne catheter yesterday evening for 24-hour urine collection purposes which is in place. Patient notes that her breathing continues to be a problem but is better on oxygen. She does not think Lasix IV did much yesterday and in fact has gained 10 pounds according to the nursing scales-I find this information somewhat inaccurate-admission weight was reportedly 189 2 days ago. She certainly does not look like she is gained 10 pounds and weight in our office was 194 the day of admission. Exam Vital signs and Labs for Last 24 Hours: Temp Pulse Resp BP Pulse Ox 97.5 F L 61 19 94/60 L 91 L 11/21/21 08:00 11/21/21 08:00 11/21/21 08:00 11/21/21 08:00 11/21/21 08:00 Laboratory Results - last 24 hr 11/20/21 11:08: POC Glucose 140 H 11/20/21 16:30: POC Glucose 129 H 11/20/21 20:12: Sodium 138, Potassium 4.4, Chloride 109 H, Carbon Dioxide 21 L, Anion Gap 12.4, BUN 39 H, Creatinine 2.30 H, Estimated Creat Clear 24, Estimated GFR 20 L, Est GFR ( Amer) 24 L, Glucose 151 H D, Calcium 8.8 11/20/21 21:00: Urine Color Dk yellow, Urine Appearance Sl cloudy, Urine pH 5.5, Ur Specific [place] >= 1.030, Urine Protein 2+, Urine Glucose (UA) Negative, Urine Ketones Negative, Urine Blood Negative, Urine Nitrate Negative, Urine Bilirubin 2+ A, Urine Urobilinogen 0.2, Ur Leukocyte Esterase Negative, Urine WBC 5-10, Ur Squamous Epith Cells 5-10, Amorphous Sediment 1+, Hyaline Casts 3-5, Coarse Granular Casts 3-5 11/20/21 22:08: POC Glucose 117 H 11/21/21 06:14: WBC 8.8, RBC 5.84 H, Hgb 16.9 H, Hct 53.5 H, MCV 91.7, MCH 28.9, MCHC 31.5 L, RDW 15.2, Plt Count 184, MPV 12.9 H, Neut % (Auto) 72.1, Lymph % (Auto) 18.5, [place] % (Auto) 7.4, Eos % (Auto) 1.3, Baso % (Auto) 0.8, Neut # (Auto) 6.3, Lymph # (Auto) 1.6, [place] # (Auto) 0.7, Eos # (Auto) 0.1, Baso # (Auto) 0.1 11/21/21 06:14: Sodium 139, Potassium 4.2, Chloride 111 H, Carbon Dioxide 19 L, Anion Gap 13.2, BUN 40 H, Creatinine 2.70 H, Estimated Creat Clear 22, Estimated GFR 17 L*, Est GFR ( Amer) 20 L, Glucose 122 H, Calcium 8.6, Magnesium 1.7, Total Bilirubin 7.8 H, AST 49 H, ALT 50, Alkaline Phosphatase 34 L, Total Protein 5.9 L, Albumin 3.6, Globulin 2.3, Albumin/Globulin Ratio 1.6 11/21/21 07:00: POC Glucose 124 H I & O for Last 24 hours: Intake & Output 11/18/21 11/19/21 11/20/21 11/21/21 11:59 11:59 11:59 11:59 Intake Total 1578 / 1578 960 / 960 Output Total 60 / 60 40 / 40 Balance 1518 / 1518 920 / 920 Weight 187 lb 6.287 oz 199 lb 6.4 oz Narrative: Continues to be jaundiced. No scleral icterus. Lungs have rhonchi, little better air movement. Heart rate regular. Abdomen is slightly tender. Soft overall. Extremities have trace ankle edema. Arthritic changes and deformity. Catheter draining clear yellow urine. Assessment and Plan (1) Jaundice Status: Acute Category: Medical Code(s): R17 - Unspecified jaundice (2) Dehydration Status: Acute Category: Medical Code(s): E86.0 - Dehydration (3) Elevated hemoglobin Status: Acute Category: Medical Code(s): D58.2 - Other hemoglobinopathies (4) Acute hypoxemic respiratory failure Status: Acute Category: Medical Code(s): J96.01 - Acute respiratory failure with hypoxia (5) Pleural effusion Status: Acute Category: Medical Code(s): J90 - Pleural effusion, not elsewhere classified (6) Ascites Status: Acute Category: Medical Code(s): R18.8 - Other ascites (7) Anasarca Status: Acute Category: Medical Code(s): R60.1 - Generalized edema (8) Stage 3b chronic kidney disease (CKD) Status: Chronic Category: Medical Code(s): N18.32 - Chronic kidney disease, stage 3b (9) Senile debility Status: Chronic Category: Medical Code(s): R54 - Age-related physical debility (10) BMI gre
[2021-11-21 11:30] LABS: POC Glucose,Bedside 132 (70-110)
[2021-11-21 12:03] VITALS: BMI 32.0
[2021-11-21 13:15] VITALS: PULSE 55; PULSE 57; O2SAT 91
--- NOTE | 2021-11-21 14:47 | ECG_ITS ---
APPROVED REPORT Exam: Resting ECG HR:56 bpm ECG Measurements Heart Rate 56 AXES UT 164 P 43 QRSd 94 QRS 132 QT 424 T -24 QTc 416 Conclusion SINUS BRADYCARDIA INCOMPLETE RIGHT BUNDLE BRANCH BLOCK [90+ ms QRS DURATION, TERMINAL R IN V1/V2, 40+ ms S IN I/aVL/V4/V5/V6] POSSIBLE RIGHT VENTRICULAR HYPERTROPHY [SOME/ALL OF: PROMINENT R IN V1, LATE TRANSITION, RAD, BOYD, SSS] POSSIBLE ANTERIOR MYOCARDIAL INFARCTION , OF INDETERMINATE AGE [30 ms Q WAVE IN V3/V4, OR R < 0.2 mV IN V4] ABNORMAL ECG UNCONFIRMED REPORT Electronically signed by : Jamison Romero MD 11/25/2021 10:15:21
[2021-11-21 15:35] LABS: Chloride 110 mmol/L (98-107); Potassium 4.7 mmoL/L (3.5-5.1); Sodium 137 mmol/L (136-145)
[2021-11-21 15:38] LABS: Blood Urea Nitrogen 41 mg/dl (7-17); Creatinine Clearance Estimated 20 mL/min (50-200); Estimated Glomerular Filt Rate 15 ml/min (>60); GFR (African American) 18 ML/MIN (>60)
[2021-11-21 15:39] LABS: Anion Gap 15.7 mEq/L (5-15); Calcium 8.8 mg/dl (8.4-10.2); Carbon Dioxide 16 mmol/L (22.0-30.0); Glucose 167 mg/dl (74-100)
[2021-11-21 15:54] LABS: POC Glucose,Bedside 161 (70-110)
[2021-11-21 16:00] VITALS: BP 85/52; PULSE 65; RESP 25; TEMP 36.4; O2SAT 89
[2021-11-21 16:58] LABS: POC Glucose,Bedside 161 (70-110)
--- NOTE | 2021-11-21 19:40 | PC.NURSE ---
Called to bedside by Tech approximately at 1400. Patient O2 sat 74% on High Flow NC 15 L, FSBS 161, BP 128/62, HR 55. Patient unable to move B/L upper and lower extremities for couple minutes. Patient started to respond slowly and able to move b/l upper and lower extremities, notified PCP and orders received STAT BMP, Hold Reglan, NS 500mL bolus over 1 hour. Patient stated to PCP this AM that she did not want aggressive care and did not want to be transported to another facility, see physicians note. Family notified of change in patient's condition.
--- NOTE | 2021-11-21 19:51 | PC.NURSE ---
Patient at 1900 ED notified came to bedside and pronounced ; [facility]EVIN contacted and family released body to [facility]. KEVIN coordinator Lyla Hamilton ruled out for donation due to age.
--- NOTE | 2021-11-21 20:06 | HMH.DEATH ---
Pronouncement Note - Date and Time of Date of : 11/21/21 Time of : 19:00 - PCOD Preliminary cause of : Cardiac arrest - Additional Data Confirmation of : no pulse, no respirations, no heart sounds Family: at bedside Attending/PCP notified?: Yes Attending physician: Jamison Romero MD
--- NOTE | 2021-11-21 21:16 | PC.NURSE ---
patient released to home @ this time.
[2021-11-21 23:51] LABS: Peripheral Smear Review Scanned Result
--- NOTE | 2021-11-22 08:40 | P.DN_ITS ---
Discharge Sum: Prov - Provider Primary care physician: Jamison Romero MD Visit Care Team Role Provider Type Jamison Romero MD Admit Provider Staff Physician Attending Provider Primary Care Provider Admitting clinician: Jamison Romero Attending physician on admission: Jamison Romero Pronouncing clinician: Santos Garciaodette Discharge Sum: Summary - Date and Time Date of admission: 11/19/21 16:24 Date of : 11/21/21 Time of : 19:00 - Hospital Course prior to Hospital Course Information: Patient was admitted from the office after she presented on , 11/19/2021 with increasing diarrhea, lethargy and weakness. Was found to be deeply jaundiced, hypoxic and dehydrated. Her recent history is that of increasing right upper quadrant abdominal pain and discomfort as well as nausea, vomiting and diarrhea with decreased p.o. intake. Work-up is included liver and kidney and gallbladder ultrasound which revealed cholelithiasis but also new onset nonalcoholic cirrhosis. She had been referred to GI in [place], Dr. Pearl, who had referred her on to hepatology specialist in [place], but her appointment was not yet for a couple of months. She had been at home progressively declining. Thinking from GI was that she had a very unusual autoimmune or metabolic hepatitis and would require significant work-up at a tertiary care center. After admission from the office she was given IV fluids and oxygen and felt much better. Her kidney function had slightly worsened. Her bilirubin remained in the 9 range. Other metabolic panels were fairly unremarkable. Had a long discussion with her on the morning of November 21 about her ongoing prognosis and need for work-up if she desired. She told me in addition to her sons who are present in the nursing staff that she did not wish to be transferred to [place] or [place] and that she did not wish significant work-up. She had already made the decision to maintain DNR status and this was respected. She had a couple of episodes of syncope with coverage from this and recovery of her mental status. Her family was able to be with her during the afternoon hours of 11/21/2021 and she was treated with Roxanol for some air hunger as well as Reglan for stomach pain from her significant hiatal hernia. 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 In accordance with her wishes no aggressive resuscitative measures were undertaken. - Summary Details: See notes above - Additional Data Confirmation of as documented by pronouncing clinician: no pulse, no respirations Family: at bedside Attending/PCP notified?: Yes Attending physician: Jamison Romero MD Was code activated?: No Autopsy requested?: No warehouse examiner notified?: No Organ bank notified?: Yes Advance directives: Yes Hospice patient?: No
== END 2021-11-21 21:16 | disposition expired | DRG 682 ==
PROVIDERS: Internal Medicine Adolescent Medicine; Admitting Provider Internal Medicine Adolescent Medicine; PCP Internal Medicine Adolescent Medicine; Visit Provider Internal Medicine Adolescent Medicine
DX: N17.9 Acute kidney failure, unspecified (principal); J96.01 Acute respiratory failure with hypoxia; K85.90 Acute pancreatitis without necrosis or infection, unspecified; R17 Unspecified jaundice; R18.8 Other ascites; J90 Pleural effusion, not elsewhere classified; E11.22 Type 2 diabetes mellitus with diabetic chronic kidney disease; N18.32 Chronic kidney disease, stage 3b; K80.20 Calculus of gallbladder without cholecystitis without obstruction; E86.0 Dehydration; K74.60 Unspecified cirrhosis of liver; Z87.891 Personal history of nicotine dependence; K44.9 Diaphragmatic hernia without obstruction or gangrene
CPT/HCPCS: 36415; 71045; 74176; 80048; 80051; 80053; 81001; 82150; 82803; 82962; 83605; 83690; 83735; 85025; 85610; 85651; 86140; 93005; 93306; 94640; 94760; 94761; C9803; J2405; U0003; U0005